=== PATIENT | male | born 1960 | race Caucasian/White ===

== ENCOUNTER 2024-10-02 00:43 | Emergency (ER) | payer BC, SELFPAY ==
[2024-10-02 00:48] VITALS: BP 128/81
[2024-10-02] MEDS: ZOFRAN ODT (ORALLY DISINTEGRATING) 4 MG PO (01:08)
[2024-10-02 01:11] LABS: Urine Albumin Negative (Neg - Trace); Urine Bilirubin Negative (Negative); Urine Character Clear (Clear); Urine Color Yellow; Urine Glucose Negative (Negative); Urine Ketone Negative (Negative); Urine Leukocyte Negative (Negative); Urine Nitrite Negative (Negative); Urine Occult Blood 2+ (Negative); Urine Urobilinogen Negative (Neg - 1+)
[2024-10-02 01:17] LABS: % Basophils 0.7 % (0-2); % Eosinophils 1.1 % (0-6); % Immature Granulocytes 0.2 % (0-0.5); % Lymphocytes 15.5 % (20.5-51.1); % Monocytes 6.4 % (1.7-9.3); % Neutrophils 76.1 % (42.2-75.2); Absolute Basophils 0.1 10^3/uL (0-0.2); Absolute Eosinophils 0.1 10^3/uL (0-0.7); Absolute Lymphocytes 1.9 10^3/uL (1.2-3.4); Absolute Monocytes 0.8 10^3/uL (0.1-0.6); Absolute Neutrophils 9.4 10^3/uL (1.4-6.5); Hematocrit 47.5 % (39.0-52.0); Hemoglobin 15.7 g/dL (13.0-18.0); Mean Corp Hgb Conc. 33.1 g/dL (33.0-37.0); Mean Corpuscular Volume 84.7 fL (80.0-94.0); Mean Platelet Volume 11.4 fL (7.4-10.4); Nucleated Red Blood Cells % 0 % (-); Platelet Count 205 10^3/uL (130-400); Red Blood Cell Count 5.61 10^6/uL (4.70-6.10); Red Cell Dist. Width 12.8 % (11.5-14.5); White Blood Cell Count 12.3 10^3/uL (4.8-10.8)
[2024-10-02 01:21] LABS: Urine Mucus Many
[2024-10-02 01:22] LABS: Urine Squamous Cell >30 /LPF (Few)
[2024-10-02 01:23] LABS: Urine Bacteria Moderate (Negative); Urine Red Blood Cell 50-60 /HPF (0-2)
[2024-10-02 01:29] LABS: ALT (SGPT) 43 U/L (0-50); AST (SGOT) 43 U/L (17-59); Albumin 4.6 g/dl (3.5-5.0); Alkaline Phosphatase 95 U/L (38-126); Blood Urea Nitrogen 18 mg/dl (9-20); Calcium 9.6 mg/dl (8.4-10.2); Carbon Dioxide 27 mmol/L (22-30); Chloride 105 mmol/L (98-107); Glucose 125 mg/dl (70-99); Potassium 4.8 mmol/L (3.5-5.1); Sodium 142 mmol/L (135-145); Total Bilirubin 0.7 mg/dl (0.2-1.3); eGFR > 60.00
[2024-10-02] MEDS: TORADOL 15 MG IV ×2 (01:55→03:43)
[2024-10-02] MEDS: ZOFRAN 4 MG IV (01:56)
[2024-10-02] MEDS: NSS 1000 IV (02:09)
[2024-10-02 02:23] VITALS: BMI 25.8
[2024-10-02 02:52] VITALS: BP 134/87
[2024-10-02 03:00] VITALS: BP 139/94
--- NOTE | 2024-10-02 03:11 | ED.GENMED ---
History of Present Illness
General
Chief Complaint: Flank Pain
Time Seen by Provider: 10/02/24 03:11
History of Present Illness
History of Present Illness:
TIME OF INITIAL ENCOUNTER: 3:15 AM
HPI: The patient presents with right flank pain. This is associated with nausea. This was abrupt in onset at around 10:30 PM tonight. He was given Zofran ODT in triage as well as IV Toradol and feels somewhat improved. However the pain is now
recurring somewhat however he declines narcotic analgesia. The pain has more recently been radiating to the right side of the abdomen now.
EXAM:
GENERAL: Well appearing in no distress
HEENT: Moist oral mucosa
CARDIOVASCULAR: No murmurs, normal heart rate, regular rhythm, No chest wall tenderness
PULMONARY: No respiratory distress, breath sounds are clear and equal
ABDOMEN: Soft with no peritoneal signs, minimal right-sided abdominal tenderness with minimal right CVA tenderness
NEUROLOGIC: Excellent strength all extremities, no coordination deficits
PSYCHIATRIC: Appropriate mental status, normal insight and judgement
EXTREMITIES: Nontender, no edema, moves all extremities equally
SKIN: No rash, no lesions
NUMBER AND COMPLEXITY OF PROBLEMS ADDRESSED AT THE ENCOUNTER
� Chronic conditions affecting care: Hyperlipidemia, GERD
� Acute Exacerbation and/or Progression of Chronic Illness: This is an acute problem
� Differential Diagnosis includes: Ureteral stone/colic, UTI/pyelonephritis very unlikely, AAA
AMOUNT AND/OR COMPLEXITY OF DATA TO BE REVIEWED AND ANALYZED
� I performed an independent evaluation of and my interpretation is:
EKG:
CT: CT shows hydroureteronephrosis associated with a 6 mm stone in the proximal right ureter
X-rays:
Laboratory Studies: Urinalysis 50-60 red cells per high-powered field with no evidence of infection, white count 12.3
Other:
� Review of other/old records: The patient was seen here in the emergency department 12 years ago with a corneal injury
� Clinical information was obtained by an independent historian: I spoke to the at bedside
� Prescriptions/Medications Considered but not given:
� Further testing considered but not performed:
RISK OF COMPLICATIONS AND/OR MORBIDITY OR MORTALITY OF PATIENT MANAGEMENT
� Social determinants of health affecting care: Lives at home
� Discussion with other providers: Discussed case with Dr. Lerner, no clear indication for admission to the hospital for emergent procedure. If he were to be admitted Dr. Lerner indicates that he likely would not have
any procedure until Friday.
� Escalation of care including admission/observation vs risk of discharge considered: Will obtain CT imaging for further evaluation. The patient is improving with Zofran and Toradol. Urinalysis shows microscopic hematuria with
no evidence of infection.
ANY OTHER UPDATES:
3:50 AM: Patient was given additional Toradol as pain recurred.
4:30 AM: Patient was given Dilaudid. Overall patient improved and feels somewhat 'woozy'.
Past History
Past History
ED Past Medical History: Hypercholesterolemia
ED Past Surgical History: Other (hernia repair)
Phy Exam
Physical Exam
Physical Exam:
See HPI
Course
Orders/Labs/Results
Orders:
Orders
10/02/24 01:00
Complete Blood Count/With Diff Urgent
Comprehensive Metabolic Panel Urgent
10/02/24 01:04
Urinalysis Reflex To Culture Urgent
Date Specimen was Collected: 10/02/24
Time Specimen was Collected: 00:55
Urine Microscopic Reflex Cult Urgent
Urine Culture Urgent
SERGIO Source: U
Specimen Description:
Date Specimen was Collected: 10/02/24
Time Specimen was Collected: 00:55
10/02/24 01:05
Ondansetron Orally Disint [Zofran Odt (Orally Disintegrating)] 4 mg .ROUTE .[facility]
10/02/24 01:07
Ondansetron Orally Disint [Zofran Odt (Orally Disintegrating)] 4 mg PO NOW STA
10/02/24 01:51
CT Abd/pel Without Iv Or Oral Urgent
Reason For Exam: right flank pain, R/O kidney stone
10/02/24 01:53
Ketorolac [Toradol] 15 mg .ROUTE .[facility]
Ondansetron Injectable [Zofran] 4 mg .ROUTE .[facility]
10/02/24 01:55
Ketorolac [Toradol] 15 mg IV NOW STA
10/02/24 01:56
Ondansetron Injectable [Zofran] 4 mg IV NOW STA
10/02/24 02:09
0.9% Sodium Chloride 1000 ml [Nss] 1,000 ml IV BOLUS
10/02/24 03:21
Ketorolac [Toradol] 15 mg IV NOW STA
10/02/24 04:30
HYDROmorphone [Dilaudid] 1 mg IV NOW STA
10/02/24 05:10
Tamsulosin [Flomax] 0.4 mg .ROUTE .[facility]
Abnormal Lab Results
10/02/24 10/02/24
01:00 01:04
WBC 12.3 H 10^3/uL
(4.8-10.8)
MPV 11.4 H fL
(7.4-10.4)
Absolute Neuts (auto) 9.4 H 10^3/uL
(1.4-6.5)
Absolute Monos (auto) 0.8 H 10^3/uL
(0.1-0.6)
Neutrophils % 76.1 H %
(42.2-75.2)
Lymphocytes % 15.5 L %
(20.5-51.1)
Glucose 125 H mg/dl
(70-99)
Ur Occult Blood Reflex 2+ A
(Negative)
Urine RBC 50-60 A /HPF
(0-2)
Urine Bacteria (Reflex) Moderate A
(Negative)
10/02/24 01:00
10/02/24 01:00
Vital Signs
Initial and Last Documented VS:
Initial Vital Signs
Temp Pulse Resp BP Pulse Ox
36.5 C 61 20 128/81 97
10/02/24 00:48 10/02/24 00:48 10/02/24 00:48 10/02/24 00:48 10/02/24 00:48
Last Documented Vital Signs
Temp Pulse Resp BP Pulse Ox
36.7 C 82 16 141/92 95
10/02/24 03:40 10/02/24 04:44 10/02/24 04:44 10/02/24 03:43 10/02/24 04:44
*Critical Care Note
Total Time (30-74mins, 75-104mins- exclusive of procedures): Not Applicable
ED Attending Note
-
Portions of this chart may have been created with voice recognition software.� Occasional wrong word or��sound alike� substitutions may have occurred due to the inherent limitations of voice recognition software.
Discharge Plan
Departure
Patient Disposition: Home (Routine Discharge)
Date of Disposition: 10/02/24
Time of Disposition: 05:21
Patient with high blood pressure during this ER visit?: Yes
Discharge Problem:
Right ureteral stone
Instructions: Kidney Stones (DC), How to Strain Your Urine, BLOOD PRESSURE
Prescriptions:
New
oxycodone-acetaminophen [Percocet] 5-325 mg tablet
1 - 2 tab PO Q6HPRN PRN (Reason: pain) Qty: 14 0RF
ondansetron HCl 4 mg tablet
4 mg PO Q8H PRN (Reason: nausea and vomiting) Qty: 14 0RF
No Action
atorvastatin [Lipitor] 40 mg Tablet
40 mg PO HS
omeprazole 20 mg Tablet,Delayed Release (Dr/Ec)
20 mg PO DAILY
Referrals:
Kd Cheng MD [Family Provider] -
Jose Lerner MD [Active] - Follow up in 2-3 days
Activity Restrictions/Additional Instructions:
You have a 6 mm stone in the proximal (high up) portion of the ureter near the kidney. I notified Dr. Lerner and he feels that you have a 50% chance of passing this on your own. If it were to keep you here you likely would not have any
procedure until Friday anyway. Therefore we can discharge you. Your white blood cell count is slightly high which nearly the pain, shows no sign of infection. I recommend 3-4 wivv-qyw-[id number] ibuprofen (Motrin) every 8 hours with food for a few
days. Return here if worse. Return here if worse or other concerns. No driving if you take Percocet. If you take Percocet, I recommend that you take something like MiraLAX to help event constipation.
Interventions
Interventions:
*Risk Screen - Suicide Last Done: 10/02/24 00:48
*General Assessment Last Done: 10/02/24 00:48
*Neglect/Abuse Screening Last Done: 10/02/24 00:48
*ED- Fall Risk Assessment Last Done: 10/02/24 00:48
*ED COVID-19 Vaccine History Last Done: 10/02/24 00:48
WH-Icmtwy-Krctjtqiuo Assessment Last Done: 10/02/24 03:45
ED-Male Genitourinary Assessment Last Done: 10/02/24 03:45
Discharge Date and Time
Print Language: [id number]
[2024-10-02 03:43] VITALS: BP 141/92
[2024-10-02] MEDS: DILAUDID 1 MG IV (04:46)
[2024-10-02 05:00] VITALS: BP 120/85
== END 2024-10-02 05:45 | disposition home or self-care (01) ==
LOC: EMR 00:43
PROVIDERS: EMERGENCY PHYSICIAN Emergency Medicine; FAMILY PHYSICIAN Family Medicine
DX: N13.2 Hydronephrosis with renal and ureteral calculous obstruction (principal); R11.0 Nausea; E78.00 Pure hypercholesterolemia, unspecified
CPT/HCPCS: 96374; 96376; 96375; 96361; 99284; 74176; 80053; 81003; 81015; 85025; 87086

== ENCOUNTER 2024-10-13 06:09 | Day surgery (SDC) | payer BC, SELFPAY ==
[2024-10-06 12:59] VITALS: BMI 27.2
[2024-10-13] VITALS (8 sets, daily range): BP systolic 96–147; BP diastolic 73–94; BMI 27.2
[2024-10-13] MEDS: NORMOSOL-R/PLASMALYTE-A 1000 IV (06:48)
[2024-10-13] MEDS: Pyridium 200 MG PO (08:36)
== END 2024-10-13 09:40 | disposition home or self-care (01) ==
LOC: SDS 06:09
PROVIDERS: ATTENDING PHYSICIAN Specialist; FAMILY PHYSICIAN Family Medicine
DX: N20.2 Calculus of kidney with calculus of ureter (principal)
CPT/HCPCS: 52352; 36415; 74018; 76000; 82365; 93005; C1894